=== PATIENT | female | born 1980 | race Caucasian/White ===

== ENCOUNTER 2021-12-03 08:28 | Outpatient (CLI) | payer BC, SELFPAY ==
--- NOTE | 2021-12-05 12:59 | WPDHOLTEREM ---
Holter/Event Monitor Holter/Event Monitor Date of procedure: 12/03/21 Holter/Event Procedure: 24 Hr Holter Monitor Indications: Palpitations Conclusion: 1. 24 hour holter monitor on 12/03/21. 2. Underlying rhythm is sinus rhythm. HR range 41-179 bpm; average HR 78 bpm. 3. There are premature supraventricular complexes. No supraventricular tachycardia. 4. No premature ventricular complexes. No ventricular tachycardia. 5. There are 5 episodes of pauses greater than 2 seconds with the longest at 2.9 seconds at 02:17. The pauses are at 23:37, 23:35, 01:21, 01:52, 01:56 due to second degree AV block, type I, type II and a sinus pause. 6. No symptoms available for correlation.
== END 2021-12-03 08:29 | disposition home or self-care (01) ==
LOC: ANHCARD 08:29
PROVIDERS: PCP Family Medicine; Visit Provider Physician Assistant
DX: R00.2 Palpitations (principal)
CPT/HCPCS: 93225; 93226

== ENCOUNTER 2025-08-01 10:25 | Outpatient (CLI) | payer BC, SELFPAY ==
--- NOTE | ~2025-08-01 | MM_ITS ---
EXAMINATION: MM screening marcela BI w james HISTORY: Screening TECHNIQUE: Craniocaudal and mediolateral oblique 3-D tomosynthesis images were obtained and synthetic 2-D images were generated. CAD analysis was submitted and interpreted. COMPARISON: Baseline BREAST PARENCHYMAL COMPOSITION: Dense: The breasts are heterogeneously dense, which may obscure small masses. FINDINGS: There is no evidence of suspicious mass, calcification, or architectural distortion to suggest malignancy in either breast. IMPRESSION: 1. No mammographic evidence of malignancy. 2. Recommend routine screening mammography in one year. BI-RADS Category 1: Negative Reviewed, dictated and finalized at location A. T TECHNICIAN
--- OUTSIDE RECORDS SUMMARY | 2025-08-01 12:17 | XMS_ITS | Clinical Summary ---
Author Organization [facility] [address] Address [address] [place] [id number] Care Team Providers Care Splash Line Operator Name Role Phone No, Physician Primary Care Provider [phone] Allergies No known active allergies Medications * This document contains information received from the source organization and may not represent a complete record from that organization. Accutane 40 mg capsule 1 Active meloxicam (MOBIC) 15 mg tabletIndication s:Left knee pain, unspecified chronicity Take 1 tablet (15 mg total) by mouth daily 30 tablet 5 Active cholecalciferol (VITAMIN D-3) 50,000 unit capsule Take 1 capsule (50,000 Units total) by mouth once a week Active Winlevi 1 % cream APPLY TO THE AFFECTED AREA(S) TWICE DAILY 5 Active doxycycline hyclate 100 mg capsule 5 Active levonorgestreL (Mirena) IUD None Entered 4 Active mupirocin (BACTROBAN) 2 % ointment APPLY A SMALL AMOUNT TO THE AFFECTED AREA THREE TIMES DAILY 5 Active Active Problems Problem Noted Date Diagnosed Date Varicose veins of lower extremity 04/13/2023 Pain due to varicose veins of lower extremity Acne 07/23/2011 Infectious wart 07/23/2011 Candidiasis of vulva and vagina 07/23/2011 Pilonidal cyst 07/23/2011 Skin inflammation 07/23/2011 Encounters Date Type Department Care Team Description 06/05/2025 Immunization [facility] Occupational Health [facility] 5th [address] [place] [address] Meeta Gerardo CMA Need for vaccination (Primary Dx) 05/25/2025 2:30 PM CDT Office Visit [facility] Orthopaedic Surgery [address] [facility] 2nd [address] [place] [address] Jules Rose MD Left knee pain, unspecified chronicity (Primary Dx) 05/25/2025 1:06 PM CDT - 05/25/2025 11:59 PM CDT Hospital Encounter [facility] [address] [place] [address] Left knee pain, unspecified chronicity Discharge Disposition: Discharge to home or self care 05/04/2025 Telephone [facility] Orthopaedic Surgery [address] [facility] 2[address] [place] [phone] Jules Rose MD from Last 3 Months Immunizations Immunization Administration Dates Next Due Influenza, Quadrivalent, Rec ombinant, Egg Free, Preservative Free, Intramuscular 05/30/2019 Influenza, Quadrivalent, Spl it, Preservative Free, Intramuscular 05/30/2018 Influenza, Trivalent, Cell C ulture-based MDCK, Preservative Free, Antibiotic Free, Intramuscular 05/16/2024 Influenza, Trivalent, Preservative Free, Intramu scular 06/05/2025 Surgical History Surgery Date Site/Laterality Comments CARDIAC CATHETERIZATION 08/16/2006 - 08/15/2007 For SVT Family History Medical History Relation Name Comments Heart disease Father Relation Name Status Comments Father Social History Tobacco Use Types Packs/Day Years Used Date Smoking Tobacco: Unknown Tobacco Cessation:Counseling Given: Not Answered Comments Unknown Sex and Gender Information Value Date Recorded Sex Assigned at Not on file Legal Sex 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 Please review and update details. 2007 Term 40w 0d M Living 2010 Term 39w 0d F Living 2010 SAB 5w0 d 2010 SAB 6w0 d 2012 Term 40w 0d M Living 2015 Term 39w 0d M Living Last Filed Vital Signs Vital Sign Reading Time Taken Comments Blood Pressure 100/64 07/20/2021 8:13 AM GROUP HOME COUNSELOR Pulse 70 07/20/2021 8:13 AM GROUP HOME COUNSELOR Temperature 36.8 C (98.2 F) 07/20/2021 8:13 AM GROUP HOME COUNSELOR Respiratory Rate 16 07/20/2021 8:13 AM GROUP HOME COUNSELOR Oxygen Saturation 99% 07/20/2021 8:1 3 AM GROUP HOME COUNSELOR Inhaled Oxygen Concentration - - Weight 63.5 kg (140 lb) 11/17/2024 2:35 PM CDT Patient reported Height 167.6 cm (5' 6) 11/17/2024 2:35 PM CDT Patient reported Body Mass Index 22.6 11/17/2024 2:35 PM CDT Plan of Treatment Health Maintenance Due Date Last Done Comments Breast Cancer Screening-Mammogram 1980 Cervical Cancer Screening 1980 Colon Cancer Screening-Colonoscopy 1980 Depression Screening 1980 Hepatitis C Screening 1980 DTaP/Tdap/Td Vaccine (1 - Tdap) 1991 Varicella Vaccines (1 of 2 - 13+ 2-dose series) 1993 Hepatitis B Screening 1998 Regular Well Visit/Exam 18-64 1998 HPV Vaccines (1 - 3-dose SCDM series) 2007 Covid-19 Vaccine (2024- season) 2025 07/06/2021, 09/27/2020, 08/29/2020 Influenza Vaccine Completed 06/05/2025, , 05/30/2019, Additional history exists Pneumococcal vaccine <65 Aged Out No longer eligible based on patient's age to complete this topic Procedures Procedure Name Priority Date/Time Associated Diagnosis Comments MRI KNEE LEFT WO CONTRAST Schedule Routine, Read Routine (OP Routine) 05/25/2025 1:47 PM CDT Left knee pain, unspecified chronicity from Last 3 Months Results * MRI Knee Left WO Contrast (05/25/2025 1:47 PM CDT) Anatomical Region Laterality Modality Lower Extremities Left Magnetic Reson ance 05/25/2025 3:10 PM CDT Impressions 05/25/2025 3:35 PM CDT 1. Tricompartmental left knee chondrosis, moderate in the patellofemoral and medial compartments, with 36 x 6 mm full-thickness chondral defect in the medial femoral condyle and multiple loose bodies. 2. Intact menisci and cruciate ligaments. Dictated by: Rigo Dominguez MD The radiology attending physician has personally reviewed this study, and had reviewed and/or edited this written report and agrees with it. Electronically signed by: Chito Jimenez M.D. Narrative 05/25/2025 3:35 PM CDT EXAMINATION: MRI KNEE LEFT WO CONTRAST HISTORY: Left knee pain FINDINGS: Multiplanar multisequence magnetic resonance examination of the left knee was performed with an extremity coil. No intravenous or intra-articular contrast was administered for this examination. Radiographs dated 11/17/2024 are available for comparison. In the medial compartment, the meniscus is intact. There is focal full-thickness chondrosis of the central weightbearing portion of the femoral condyle, with in situ fragment. The overall defect measures 3.6 cm in anterior-posterior dimension, and 0.6 cm in the transverse dimension. There is no subchondral edema. In the lateral compartment, the meniscus is intact. Multiple areas of deep fissuring seen in the central weightbearing and posterior femoral condyle, the largest which measures 2.8 cm in the anterior-posterior dimension, and 0.2 cm in the transverse plane. No subchondral edema or cystic change. In the patellofemoral compartment, there is full-thickness chondrosis of the lateral patellar facet, with moderate chondrosis of the median ridge and medial facet. There is matching full thickness chondrosis of the lateral trochlear cartilage, with intact central cartilage. There is deep fissuring of the superior medial femoral cartilage. Subchondral edema and cystic changes are seen in the lateral trochlea, and lateral aspect of the patella. The cruciate are intact. The collateral ligaments are intact. The extensor mechanism is normal. The popliteus tendon is normal. There is a moderate joint effusion. Multiple ossified loose bodies are identified in the posterior joint space, with multiple small loose bodies in the superolateral patella recess. The bone marrow signal is normal. There is small venous reformation in the proximal lateral head of gastrocnemius. Procedure Note Chito Jimenez MD - 05/25/2025 EXAMINATION: MRI KNEE LEFT WO CONTRAST HISTORY: Left knee pain FINDINGS: Multiplanar multisequence magnetic resonance examination of the left knee was performed with an extremity coil. No intravenous or intra-articular contrast was administered for this examination. Radiographs dated 11/17/2024 are available for comparison. In the medial compartment, the meniscus is intact. There is focal full-thickness chondrosis of the central weightbearing portion of the femoral condyle, with in situ fragment. The overall defect measures 3.6 cm in anterior-posterior dimension, and 0.6 cm in the transverse dimension. There is no subchondral edema. In the lateral compartment, the meniscus is intact. Multiple areas of deep fissuring seen in the central weightbearing and posterior femoral condyle, the largest which measures 2.8 cm in the anterior-posterior dimension, and 0.2 cm in the transverse plane. No subchondral edema or cystic change. In the patellofemoral compartment, there is full-thickness chondrosis of the lateral patellar facet, with moderate chondrosis of the median ridge and medial facet. There is matching full thickness chondrosis of the lateral trochlear cartilage, with intact central cartilage. There is deep fissuring of the superior medial femoral cartilage. Subchondral edema and cystic changes are seen in the lateral trochlea, and lateral aspect of the patella. The cruciate are intact. The collateral ligaments are intact. The extensor mechanism is normal. The popliteus tendon is normal. There is a moderate joint effusion. Multiple ossified loose bodies are identified in the posterior joint space, with multiple small loose bodies in the superolateral patella recess. The bone marrow signal is normal. There is small venous reformation in the proximal lateral head of gastrocnemius. IMPRESSION: 1. Tricompartmental left knee chondrosis, moderate in the patellofemoral and medial compartments, with 36 x 6 mm full-thickness chondral defect in the medial femoral condyle and multiple loose bodies. 2. Intact menisci and cruciate ligaments. Dictated by: Rigo Dominguez MD The radiology attending physician has personally reviewed this study, and had reviewed and/or edited this written report and agrees with it. Electronically signed by: Chito Jimenez M.D. us Jules Rose MD IMG MRI PROCEDURES Final Result from Last 3 Months Insurance Email Data Source [place] Email Data Source [place] Email Data Source [place]OS Member Subscriber Plan / Payer (Ef fective 2012-Present) Name:OsielEh gilberte Relation to Subscriber:Spouse Name:HIENShabbirMARI Date of :1980 Address: [address] [place] [id number] Payer ID:[id number] (NAIC) Type: ALLIANCE Address: [facility] [id number] [place] [id number] Care Teams Splash Line Operator Relationship Specialty Start Date End Date No, Physician PCP - General 07/20/21
--- OUTSIDE RECORDS SUMMARY | 2025-08-01 12:17 | XMS_ITS | Data Portability ---
Author Organization [place] - [facility], Main Office Address [address] [place] [address] Assessment Encounter Date Assessment Date Assessment LastModified by Organization Details LastModified Time 10/27/2022 10/27/2022 patient with bilateral lower extremity varicosities, symptomatic. Has had treatments in the past but issues have returned. It interferes with work. We will proceed with duplex examination to assess patency of veins and reflux Not available 10/27/2022 11:57:20 04/13/2023 04/13/2023 RLE varicocities. Ablation procedure performed today, f/u in one week. Keep compression on for 24-48 hours . Walk frequently. Patient agreeable. [email or web address] Not available 04/13/2023 14:02:49 04/20/2023 04/20/2023 US performed today of R GSV. Occlusion of GSV from distal thigh to SFJ. No thrombus at or beyond the SF junction. Femoral vein compressible. Good doppler flow through femoral vein. Femoral vein compressible. Thrombus does closely approximate valve, so recommend 325 mg aspirin x 10 days, discussed options with patient and she preferred this precaution. Will schedule sclerotherapy and phlebectomies. Not available 04/20/2023 12:48:17 Plan of Treatment Reminders Order Date Submit Date Provider Last Modified By Organization Details Last Modified Time Details Appointments None record ed. Lab None record ed. Referral None record ed. Procedures None record ed. Surgeries None record ed. Imaging None record ed. Medication Orders None record ed. Patient TargetsNo targets recorded. Patient InstructionsNo instructions recorded. Reason for Referral None Reported. Problems Name Problem SNOMED Code Status Onset Date Resolution Date Notes Provider Name and Address Organization Details Recorded Time Pain due to varicose veins of lower extremity 250965206 Active 023 Navdeep dunham MD [address] [facility], [facility] [address], [place], [address], [facility] [employer] [facility] 3 14:05:14 Varicose veins of lower extremity 53518070 Active 023 Navdeep dunham MD [address] [facility], [facility] [address], [place], [address], [facility] [employer] [facility] [employer] [facility] 3 14:32:01 Problem Notes None recorded. Medical Equipment None Reported. Allergies No known drug allergies Medications Not known to be on any medication Vitals Date Recorded Body height Body mass index (BMI) Body weight Heart rate Respiratory rate Body temperature Oxygen saturation Systolic And Diastolic Provider Name and Address Organization Details Last Updated DateTime 3 170.18 cm 21.9 kg/m2 34441.9 3 g 77 /min 14 /min 98 [degF] 98 % 112/70 mm[Hg] [facility] [employer] [facility] 3 11:24:18 Date Recorded Body height Body mass index (BMI) Body weight Provider Name and Address Organization Details Last Updated DateTime 04/13/2023 170.18 cm 21.9 kg/m2 81323.93 g Isa Dupree MA [facility] [employer] [facility] 04/13/2023 12:23:10 Date Recorded Body height Body mass index (BMI) Body weight Body temperature Heart rate Respiratory rate Oxygen saturation Systolic And Diastolic Provider Name and Address Organization Details Last Updated DateTime 3 170.18 cm 21.9 kg/m2 40173.9 3 g 98 [degF] 77 /min 14 /min 98 % 112/70 mm[Hg] [facility] [employer] [facility] 3 12:21:00 Social History None recorded. Functional Status None recorded. Mental Status None recorded. Family History Relationship Description Onset Age of this Age Resolved Age Notes LastModified by Organization Details LastModified Time Mother Venous varices zac Not available 10/14 11:24:48 Medical History Condition Response MIGRAINES Y Gynecological HistoryNo gynecological history recorded. Obstetrics History GPAL:G 0 P 0 0 0 0 Past Encounters Encounter ID Performer Location Encounter Start Date Encounter Closed Date Diagnosis/Indication Diagnosis SNOMED-CT Code Diagnosis ICD10 Code Diagnosis IMO Codes Diagnosis Note [id number] Navdeep kessler MD [facility] General Surgery [address] [place] [address] 10/27/2022 10:42:17 10/27/2022 12:23:52 Pain due to varicose veins of lower extremity 222554792 I83.813 [id number] Navdeep kessler MD [facility] General Surgery [address] [place] [address] 11/03/2022 08:38:15 11/03/2022 13:37:02 [id number] Navdeep kessler MD [facility] General Surgery [address] [place] [address] 1 04/13/2023 12:08:48 04/15/2023 11:19:40 Varicose veins of lower extremity 30551421 I83.419 [id number] Navdeep kessler MD [facility] General Surgery [address] [place] [address] 1 04/20/2023 12:13:46 2023 18:29:33 Varicose veins of lower extremity 81743734 I83.891 Right Leg Health Concerns Section Related Observation LastModified by Organization Detai ls LastModified Time None Recorded Concern Status LastModified by Organization Details LastModified Time None Recorded Advance Directives Directive None Recorded Payers Insurance Date Sequence Insurance Name Policy Number Policy Gracias Covered Member ID Garcias Member ID Guarantor Name 2023 1 [place] [id number] Lambert Gardnermaren [id number] Ronda Cordero Notes Date Note Type Note Provider Name and Address Organization Details Recorded Time 10/27/2022 text/html patient complains of large painful varicosities bilateral lower extremities. Has had for many many years. Worse after becoming . Has had ablations of saphenous vein in the past but the problem has returned . 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 Symptoms worse after standing all day at work. Also complains of itching and throbbing Navdeep George MD [address], [place], [address], [employer] [facility] 11/10/2022 12:44:17 04/13/2023 text/html Patient here for ablation of RLE varicocities. Navdeep George MD [address], [place], [address], [employer] [facility] 04/13/2023 14:32:15 04/20/2023 text/html Patient here for f/u after ablation procedure last week of R leg. Doing well, some soreness and bruising. Ultrasound today. Navdeep George MD [address], [place], [address], [employer] [facility] 04/20/2023 14:10:12 OBGyn Episode No OBEpisode recorded.
--- OUTSIDE RECORDS SUMMARY | 2025-08-01 12:17 | XMS_ITS | Clinical Summary ---
Author Organization [facility] Address [address] [place] [address] Care Team Providers Care Director Of Strategic Programs Name Role Phone Unavailable Primary Care Provider Unavailabl e Source Comments [facility],non-owned Affiliates and Associated Physician Practices is amultiple site organization consisting of ambulatory clinics and hospital sitesin [place], [place], [place] and [place]. This disclosure is being madepursuant to the Care Everywhere program and may not contain all information available regarding this patient. 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 Gender Identity Not on file Sexual Orientation Not on file Plan of Treatment Health Maintenance Due Date Last Done Comments COLOGUARD (AGES 45-75) - COL ON CA SCREENING 1980 COLON MONITORING 1980 COLONOSCOPY - COLON CA SCREENING 1980 CT COLONOGRAPHY - COLON CA SCREENING 1980 Colorectal Cancer Screening 1980 FIT - COLON CA SCREENING 1980 FLEX SIG - COLON CA SCREENING 1980 LIPID TESTING 1980 MAMMOGRAM 1980 HIV SCREENING 1995 HEPATITIS C SCREENING 07/11/1998 DTAP/TDAP/TD VACCINES (1 - Tdap) 1999 HEPATITIS B VACCINE (1 of 3 - 19+ 3-dose series) 1999 HPV VACCINE (1 - 3-dose SCDM series) 2007 DEPRESSION SCREENING 08/16/2024 COVID-19 VACCINE (1 - 2024-2 6 season) 2025 INFLUENZA VACCINE (#1) 2025 ZOSTER VACCINE (1 of 2) 2030 HIB VACCINE Aged Out No longer eligi ble based on patient's age to complete this topic MENINGOCOCCAL (Group B) VACC INE SHARED DECISION-MAKING Aged Out No longer eligibl e based on patient's age to complete this topic MENINGOCOCCAL GROUPS A/C/Y/W VACCINE Aged Out No longer eligible b ased on patient's age to complete this topic PNEUMOCOCCAL VACCINE Aged Out No long er eligible based on patient's age to complete this topic Insurance ANTH
--- OUTSIDE RECORDS SUMMARY | 2025-08-01 12:17 | XMS_ITS | Clinical Summary ---
Author Organization [facility] Address [address] [place] [phone] Care Team Providers Care Cartoonist Special Effects Name Role Phone Unavailable Primary Care Provider Unavailabl e Medications ISOtretinoin (Accutane) 40 mg capsule Take 40 mg by mouth 2 times daily. 06/13/2021 Active cholecalciferol 1,250 mcg (50,000 unit) Capsule Take 50,000 Units by mouth every 7 days. 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 Gender Identity Not on file Sexual Orientation Not on file Last Filed Vital Signs Vital Sign Reading Time Taken Comments Blood Pressure 100/64 11/10/2023 10:08 AM CDT Pulse - - Temperature - - Respiratory Rate - - Oxygen Saturation - - Inhaled Oxygen Concentration - - Weight 66.2 kg (146 lb) 11/10/2023 10:08 AM CDT Height 167.6 cm (5' 6) 11/10/2023 10:08 AM CDT Body Mass Index 23.57 11/10/2023 10:08 AM CDT Plan of Treatment Health Maintenance Due Date Last Done Comments DTAP/TDAP/TD VACCINES (1 - Tdap) 1999 HEPATITIS B VACCINES (1 of 3 - 19+ 3-dose series) 06/18 HPV/Cotest (21-29) 2001 HPV/Cotest (30-65) 2010 BREAST CANCER SCREENING 2020 CERVICAL CANCER SCREENING 07/21/2020 PAP SMEAR 07/21/2020 07/21/2017 INFLUENZA VACCINE (#1) 2025 COLORECTAL SCREENING 2025 Colorectal Cancer Screening 2025 FIT-DNA Q 3 years 2025 FIT/FOBT Q 1 year 2025 Flex Sig/CT Colonography Q 5 years 2025 HPV VACCINES (No Doses Required) Completed Insurance [employer]/TRUE BLUE PPO
--- OUTSIDE RECORDS SUMMARY | 2025-08-01 12:17 | XMS_ITS | Encounter Summary ---
Author Organization [facility] Address [address] [place] [address] Care Team Providers Care Director Of First Impressions Name Role Phone Unavailable Primary Care Provider Unavailabl e Encounter Details Date Type Department Care Team (Late st Contact Info) Description 10/06/2019 Lab Requisition [facility] Derm[facility] Lab [address] [place] [id number] Tab Brown MD [address] [place] [id number] Social History Tobacco Use Types Packs/Day Years Used Date Smoking Tobacco: Never Assessed Comments Unknown Sex and Gender Information Value Date Recorded Sex Assigned at Not on file Legal Sex Female 2:16 PM STRUCTURAL ANALYSIS ENGINEER Gender Identity Not on file Sexual Orientation Not on file documented as of this encounter Plan of Treatment Not on file documented as of this encounter Procedures Procedure Name Priority Date/Time Associated Diagnosis Comments DERMATOPATHOLOGY Routine 10/05/2019 12:0 0 AM STRUCTURAL ANALYSIS ENGINEER documented in this encounter Results * DERMATOPATHOLOGY (10/05/2019 12:00 AM STRUCTURAL ANALYSIS ENGINEER) Case Report Dermatopathology Report Case: [id number] Authorizing Provider: Tab Brown MD Collected: 10/05/2019 12:00 AM Ordering Location: [facility] Derm[facility] Lab Received: 10/06/2019 03:03 PM Pathologist: Meeta Mullins MD Specimen: Skin, right lower lateral leg 0 1:37 PM STRUCTURAL ANALYSIS ENGINEER DERMATOPATHOLOGY LABORATORY Final Diagnosis Specimen A. SKIN, right lower lateral leg: LENTIGINOUS MELANOCYTIC NEVUS, JUNCTIONAL TYPE, IRRITATED (JUNCTIONAL MELANOCYTIC NEVUS WITH ARCHITECTURAL DISORDER) (D22.71) 0 1:37 PM STRUCTURAL ANALYSIS ENGINEER DERMATOPATHOLOGY LABORATORY at 1337 STRUCTURAL ANALYSIS ENGINEER Clinical History Nevus vs MM. Path # [id number]. 0 1:37 PM STRUCTURAL ANALYSIS ENGINEER DERMATOPATHOLOGY LABORATORY Gross Description Specimen A: Received is one formalin filled container labeled with the patient's name and designated right lower lateral leg. The specimen consists of a shave biopsy measuring [id number]. Jar 0. 0 1:37 PM STRUCTURAL ANALYSIS ENGINEER DERMATOPATHOLOGY LABORATORY Microscopic Description Specimen A. SKIN, right lower lateral leg: This is a junctional nevus. There is melanin pigment in the stratum corneum. There is architectural disorder characterized by a lentiginous proliferation of melanocytes between irregular nests of cells along the dermal-epidermal junction. There is underlying fibroplasia of the papillary dermis. (Junctional Marcel's Nevus or Junctional Dysplastic Nevus) 0 1:37 PM STRUCTURAL ANALYSIS ENGINEER DERMATOPATHOLOGY LABORATORY Disclaimer An external and internal positive and negative controls are appropriate for the histochemical, immunohistochemical and immunofluorescence stain(s) in this case (if any), except where stated explicitly. The performance characteristics of the stain(s) cited in this report were developed and its performance characteristic determined by the Dermatopathology Laboratory at [facility], directed by Dr. Chaitanya Naranjo. These tests need not be, and therefore are not, approved by the [place] Food and Drug Administration. The tests are used for clinical purposes. Billing Codes Specimen Charges Stain Charges 56606 1 0 1:37 PM STRUCTURAL ANALYSIS ENGINEER DERMATOPATHOLOGY LABORATORY Embedded Images 0 1:37 PM STRUCTURAL ANALYSIS ENGINEER DERMATOPATHOLOGY LABORATORY Pathology/Cytolog y TISSUE SPECIMEN FROM SKIN / Unknown 10/05/2019 10/06/2019 3:03 PM STRUCTURAL ANALYSIS ENGINEER us Tab Brown MD LAB - PATHOLOGY/CYTOLOGY ORDER MARIUM Final Result DERMATOPATHOLOGY LABORATORY [facility] - Department of Dermatology [address] [place] [address], [facility] [phone] documented in this encounter Visit Diagnoses Not on filedocumented in this encounter
== END 2025-08-01 10:26 | disposition home or self-care (01) ==
LOC: CHSIMG 10:27
PROVIDERS: PCP Nurse Practitioner Family; Visit Provider Nurse Practitioner Family
DX: Z12.31 Encounter for screening mammogram for malignant neoplasm of breast (principal)
CPT/HCPCS: 77063; 77067